=== PATIENT | female | born 1990 | race Caucasian/White ===

== ENCOUNTER → 2017-03-16 | Outpatient (CLI) | payer OTHER | LOC: M LAB 14:54 | PROVIDERS: ATTEND Internal Medicine Gastroenterology | DX: K58.0 Irritable bowel syndrome with diarrhea (principal) ==

== ENCOUNTER 2017-03-25 11:03 | Outpatient (CLI) | payer OTHER ==
[~2017-03-25] VITALS: Ht 160 cm; Wt 62.6 kg
[2017-03-25] MEDS ORDERED: NS 1,000 ML IV ONE (11:15)
[2017-03-25] MEDS ORDERED: PROPOFOL 200 MG/20 ML VIAL As Ordered ONE ×2 (12:19→13:12)
[2017-03-25] MEDS ORDERED: LIDOCAINE 2% INJ 100 MG/5 ML SDV (FOR ANES.) As Ordered ONE (12:19)
[2017-03-25] MEDS ORDERED: PROPOFOL 500 MG/50 ML VIAL As Ordered ONE (12:24)
--- NOTE | 2017-03-25 13:03 | ROOR ---
Patient Name: Evelin Keene Procedure Date: 03/25/2017 12:51 PM Date of : 1990 Age: 26 Room: [facility] Gender: Female Note Status: Finalized Procedure: Upper GI endoscopy Indications: Nausea Providers: Agustin CHINCHILLA MD Referring MD: Carlo Monte Requesting Provider: Medicines: Monitored Anesthesia Care Complications: No immediate complications. Procedure: Pre-Anesthesia Assessment: - The heart rate, respiratory rate, oxygen saturations, blood pressure, adequacy of pulmonary ventilation, and response to care were monitored throughout the procedure. The Endoscope was introduced through the mouth, and advanced to the third part of duodenum. The upper GI endoscopy was accomplished without difficulty. The patient tolerated the procedure well. Findings: The esophagus was normal. The stomach was normal. The examined duodenum was normal. Bilious fluid was found in the stomach. Impression: - Normal esophagus. - Normal stomach. - Bilious gastric fluid. - Normal examined duodenum. - No specimens collected. Recommendation: - Observe patient's clinical course. Agustin Chinchilla MD Agustin CHINCHILLA MD 03/25/2017 1:03:22 PM This report has been signed electronically. Number of Addenda: 0 Note Initiated On: 03/25/2017 12:51 PM Estimated Blood Loss: Estimated blood loss: none.
--- NOTE | 2017-03-25 13:20 | ROOR ---
Patient Name: Evelin Keene Procedure Date: 03/25/2017 12:52 PM Date of : 1990 Age: 26 Room: [facility] Gender: Female Note Status: Finalized Procedure: Colonoscopy Indications: Generalized abdominal pain, Abdominal pain in the left lower quadrant, Diarrhea Providers: Agustin CHINCHILLA MD Referring MD: Carlo Monte Requesting Provider: Medicines: Monitored Anesthesia Care Complications: No immediate complications. Procedure: Pre-Anesthesia Assessment: - The heart rate, respiratory rate, oxygen saturations, blood pressure, adequacy of pulmonary ventilation, and response to care were monitored throughout the procedure. The Colonoscope was introduced through the anus and advanced to the cecum, identified by appendiceal orifice and ileocecal valve. The colonoscopy was performed without difficulty. The patient tolerated the procedure well. The quality of the bowel preparation was good. Findings: The perianal and digital rectal examinations were normal. The colon (entire examined portion) was moderately redundant. I am not able to intubate terminal ileum due to transverse position of cecum. The entire examined colon appeared normal on direct and retroflexion views. Impression: - The entire examined colon is normal on direct and retroflexion views. - No specimens collected. - ---Note is made of a long redundant colon-likely prone to irregularity, constipation, incomplete emptying symptoms. Recommendation: - Use fiber, for example Citrucel, Fibercon, Konsyl or Metamucil. - Miralax 1 capful (17 grams) in 8 ounces of water daily. - Perform a computed tomographic (CT scan) enterography at appointment to be scheduled. - (My office will call you to set this up) Agustin Chinchilla MD Agustin CHINCHILLA MD 03/25/2017 1:19:39 PM This report has been signed electronically. Number of Addenda: 0 Note Initiated On: 03/25/2017 12:52 PM Estimated Blood Loss: Estimated blood loss: none.
[2017-03-25 13:30] VITALS: BP 135/75
== END 2017-03-25 13:44 | disposition home or self-care (01) ==
LOC: M OPP 11:03
PROVIDERS: ATTEND Internal Medicine Gastroenterology
DX: R10.84 Generalized abdominal pain (principal); R10.32 Left lower quadrant pain; R19.7 Diarrhea, unspecified; R11.0 Nausea; Q43.8 Other specified congenital malformations of intestine; I10 Essential (primary) hypertension; K58.9 Irritable bowel syndrome, unspecified; F41.9 Anxiety disorder, unspecified; Z88.1 Allergy status to other antibiotic agents; Z88.0 Allergy status to penicillin; Z88.2 Allergy status to sulfonamides; Z88.8 Allergy status to other drugs, medicaments and biological substances

== ENCOUNTER → 2022-01-15 | Outpatient (CLI) | payer OTHER | LOC: M RAD 16:24 | PROVIDERS: ATTEND Physician Assistant Medical | DX: J32.0 Chronic maxillary sinusitis (principal); H74.8X2 Other specified disorders of left middle ear and mastoid ==

== ENCOUNTER 2024-12-05 22:14 | Inpatient (IN) | payer OTHER ==
[~2024-12-05] VITALS: Ht 160 cm; Wt 58.0 kg
[~2024-12-05 22:14] MED LIST: BUSP10TA PO; DICY-61 PO; FAMO40TA3 PO; HYDR-643; METH-1165; MIREIUD; ONDA-83 PO; PANT40TA29; VYVA20CA PO
[2024-12-05 22:57] LABS: HEMATOCRIT 41.7 % (36.0-47.0); HEMOGLOBIN 14.2 g/dl (12.0-15.5); MEAN CORPUSCULAR HEMOGLOBIN 31.8 pg (27.0-33.0); MEAN CORPUSCULAR HGB CONC 34.1 g/dl (32.0-36.5); MEAN CORPUSCULAR VOLUME 93.5 fl (80.0-96.0); PLATELET COUNT, AUTOMATED 289 10^3/uL (150-450); RED BLOOD COUNT 4.46 10^6/uL (4.00-5.40); WHITE BLOOD COUNT 8.3 10^3/uL (4.0-10.0)
[2024-12-05 23:17] LABS: ETHYL ALCOHOL (ETHANOL) 0.006 % (0.000-0.010)
[2024-12-05 23:19] LABS: ALBUMIN 4.4 G/DL (3.2-5.2); ALKALINE PHOSPHATASE 73 U/L (35-104); ALT/SGPT 14 U/L (7.0-40); AST/SGOT 12 U/L (<34); BILIRUBIN,DIRECT 0.2 MG/DL (<0.4); BILIRUBIN,TOTAL 0.6 MG/DL (0.3-1.2); BLOOD UREA NITROGEN 8 MG/DL (9-23); CALCIUM LEVEL 9.3 MG/DL (8.5-10.1); CARBON DIOXIDE LEVEL 31 MMOL/L (20-31); CHLORIDE LEVEL 106 MMOL/L (98-107); CREATININE FOR GFR 0.77 MG/DL (0.55-1.30); GLOMERULAR FILTRATION RATE > 90.0 (>60); GLUCOSE, FASTING 90 MG/DL (60-100); POTASSIUM SERUM 3.7 MMOL/L (3.5-5.1); SALICYLATE LEVEL < 3.0 MG/DL (<30); SODIUM LEVEL 144 MMOL/L (136-145); TOTAL PROTEIN 7.3 G/DL (5.7-8.2)
[2024-12-05 23:21] LABS: BARBITURATES URINE NEGATIVE (NEGATIVE); BENZODIAZEPINES URINE NEGATIVE (NEGATIVE); COCAINE METABOLITE URINE NEGATIVE (NEGATIVE); METHADONE URINE NEGATIVE (NEGATIVE); OPIATES URINE NEGATIVE (NEGATIVE); PHENCYCLIDINE URINE NEGATIVE (NEGATIVE)
[2024-12-05 23:25] LABS: AMPHETAMINES LEVEL URINE POSITIVE (NEGATIVE); CANNABINOIDS URINE POSITIVE (NEGATIVE)
[2024-12-05] MEDS ORDERED: CHOL125C5 PO (23:44)
[2024-12-05] MEDS ORDERED: CYAN500T20 PO (23:44)
[2024-12-05] MEDS ORDERED: HYDR50TA70 PO (23:44)
[2024-12-05] MEDS ORDERED: HOME MED LIST COMPLETE! XX SCH (23:45)
[2024-12-06] MEDS ORDERED: diphenhydrAMINE 25MG CAP PO PRN (02:55)
[2024-12-06] MEDS ORDERED: MAALOX 30 ML SUSP *UDC PO PRN (02:55)
[2024-12-06] MEDS ORDERED: ACETAMINOPHEN 325 MG TAB PO PRN (02:55)
[2024-12-06] MEDS ORDERED: MOM 30ML SUSPENSION UDC PO PRN (02:55)
[2024-12-06] MEDS ORDERED: IBUPROFEN 400MG TAB PO PRN (02:55)
[2024-12-06 04:34] VITALS: BP 113/60; TEMP 97.6; O2SAT 100
[2024-12-06] MEDS: busPIRone 10 MG TAB PO SCH (13:04)
[2024-12-06] MEDS ORDERED: DICYCLOMINE 10 MG CAP PO PRN (13:45)
[2024-12-06] MEDS ORDERED: ONDANSETRON 4MG TAB PO PRN (13:45)
[2024-12-06] MEDS ORDERED: FAMOTIDINE 20 MG TAB PO PRN (13:45)
[2024-12-06] MEDS: CYANOCOBALAMIN 500 MCG TAB PO SCH (14:53)
[2024-12-06 15:10] VITALS: BP 118/67; TEMP 97.4; O2SAT 100
[2024-12-06] MEDS: traZODone 50 MG TAB PO PRN (20:10)
[2024-12-06] MEDS: FLUoxetine 10 MG CAP PO SCH (20:10)
[2024-12-07 06:31] VITALS: BP 106/51; TEMP 97.9; O2SAT 98
[2024-12-07] MEDS ORDERED: FLUO-290 PO (09:05)
== END 2024-12-07 12:00 | disposition home or self-care (01) | DRG 755 ==
LOC: M ED 22:14 → M ED INP 12-06 02:54 → M PSY 12-06 04:34
PROVIDERS: ADMIT Psychiatry & Neurology Neurology; ATTEND Psychiatry & Neurology Neurology
DX: F43.23 Adjustment disorder with mixed anxiety and depressed mood (principal); R45.851 Suicidal ideations; F90.9 Attention-deficit hyperactivity disorder, unspecified type; K58.9 Irritable bowel syndrome, unspecified; Z91.52 Personal history of nonsuicidal self-harm; Z88.0 Allergy status to penicillin; Z88.1 Allergy status to other antibiotic agents; Z88.2 Allergy status to sulfonamides; Z63.0 Problems in relationship with spouse or partner; Z98.82 Breast implant status; Z90.49 Acquired absence of other specified parts of digestive tract; Z79.899 Other long term (current) drug therapy; E28.2 Polycystic ovarian syndrome; E21.3 Hyperparathyroidism, unspecified; F17.290 Nicotine dependence, other tobacco product, uncomplicated

== ENCOUNTER 2025-02-07 01:02 | Emergency (ER) | payer OTHER ==
[~2025-02-07] VITALS: Ht 160 cm; Wt 59.1 kg
[~2025-02-07 01:02] MED LIST changes: +CHOL125C5 PO; +CYAN500T20 PO; +FLUO-290 PO; +HYDR50TA70 PO
[2025-02-07 01:42] LABS: PLATELET COUNT, AUTOMATED 264 10^3/uL (150-450)
[2025-02-07 02:12] LABS: BARBITURATES URINE NEGATIVE (NEGATIVE); BENZODIAZEPINES URINE NEGATIVE (NEGATIVE); CANNABINOIDS URINE NEGATIVE (NEGATIVE); COCAINE METABOLITE URINE NEGATIVE (NEGATIVE); METHADONE URINE NEGATIVE (NEGATIVE); OPIATES URINE NEGATIVE (NEGATIVE); PHENCYCLIDINE URINE NEGATIVE (NEGATIVE)
[2025-02-07 02:15] LABS: ETHYL ALCOHOL (ETHANOL) < 0.003 % (0.000-0.010)
[2025-02-07 02:17] LABS: ALT/SGPT 16 U/L (7.0-40); AST/SGOT 19 U/L (<34); CALCIUM LEVEL 9.6 MG/DL (8.5-10.1); CARBON DIOXIDE LEVEL 32 MMOL/L (20-31); CHLORIDE LEVEL 101 MMOL/L (98-107); CREATININE FOR GFR 0.81 MG/DL (0.55-1.30); GLOMERULAR FILTRATION RATE > 90.0 (>60); POTASSIUM SERUM 3.5 MMOL/L (3.5-5.1); SALICYLATE LEVEL < 3.0 MG/DL (<30); SODIUM LEVEL 143 MMOL/L (136-145)
[2025-02-07 02:19] LABS: AMPHETAMINES LEVEL URINE POSITIVE (NEGATIVE)
[2025-02-07 05:57] VITALS: BP 117/67; TEMP 97.7; O2SAT 98
== END 2025-02-07 06:31 | disposition home or self-care (01) ==
LOC: EDBD 01:02 → M ED 01:02
DX: F43.0 Acute stress reaction (principal); K21.9 Gastro-esophageal reflux disease without esophagitis; E55.9 Vitamin D deficiency, unspecified; F41.9 Anxiety disorder, unspecified; F32.A Depression, unspecified; Z88.0 Allergy status to penicillin; Z88.2 Allergy status to sulfonamides; Z88.8 Allergy status to other drugs, medicaments and biological substances; Z79.899 Other long term (current) drug therapy